=== PATIENT | female | born 1970 | race Caucasian/White ===

== ENCOUNTER 2017-04-18 21:36 | Emergency (ER) | payer OTHER ==
[~2017-04-18] VITALS: Ht 162.6 cm; Wt 94.1 kg
[2017-04-18 22:03] VITALS: BP 143/90
--- NOTE | 2017-04-18 22:40 | NUR ---
PT TAKEN TO XRAY FROM THE LOBBY
--- NOTE | 2017-04-18 22:47 | NUR ---
PT RETURN FROM XRAY TO THE LOBBY
--- NOTE | 2017-04-19 01:49 | NUR ---
PT TAKEN TO BED 3
--- NOTE | 2017-04-19 01:55 | NUR ---
47 Y/O F W/ C/O R PLANTAR PAIN S/P JUMPING INTO THE POOL YESTERDAY. PAIN SCALE 2/10 AT REST, THROBBING PAIN AND 8/10 WHEN WALKING, STABBING PAIN. MED HX OVARIAN CYST, HISTERECTOMY, GALLBLADDER SURGERY. DENIES N/V/D; SKIN IS PINK/WARM/DRY; AAOX4 WITH EVEN AND STEADY GAIT; PT DENIES ANY FEVER, CP, SOB, OR COUGH AT THIS TIME; PATIENT STATES PAIN OF 2/10 AT THIS TIME; VSS; PATIENT POSITIONED FOR COMFORT; HOB ELEVATED; BEDRAILS UP X2; BED DOWN. ER MD MADE AWARE OF PT STATUS.
--- NOTE | 2017-04-19 02:14 | NUR ---
Dr. Herring evaluating patient at bedside.
--- NOTE | 2017-04-19 02:25 | NUR ---
Patient discharged with v/s stable. Written and verbal after care instructions given and explained. Patient alert, oriented and verbalized understanding of instructions. Ambulatory with steady gait. All questions addressed prior to discharge. ID band removed. Patient advised to follow up with PMD. Rx of MOTRIN 800MG, TID, NORCO 5MG-325MG Q4HRS given. Patient educated on indication of medication including possible reaction and side effects. Opportunity to ask questions provided and answered.
[2017-04-19 02:28] VITALS: BP 125/76
== END 2017-04-19 02:25 | disposition home or self-care (01) ==
LOC: MED 21:36
DX: S90.31XA Contusion of right foot, initial encounter (principal); Z88.0 Allergy status to penicillin; Z90.710 Acquired absence of both cervix and uterus; W16.512A Jumping or diving into swimming pool striking water surface causing other injury, initial encounter; Y93.11 Activity, swimming; Y92.34 Swimming pool (public) as the place of occurrence of the external cause; Y99.8 Other external cause status
CPT/HCPCS: 73630; 99284